=== PATIENT | female | born 2005 | race African-American/Black ===

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

== ENCOUNTER 2023-01-27 15:16 | Outpatient (CLI) | payer BC, SELFPAY | END 2023-01-27 15:17 | disposition home or self-care (01) | LOC: LKVREF 15:19 | PROVIDERS: PCP Physician Assistant Medical; Visit Provider Physician Assistant Medical | DX: E03.9 Hypothyroidism, unspecified (principal); I10 Essential (primary) hypertension | CPT/HCPCS: 82043; 82570; 87086 ==

== ENCOUNTER 2023-01-31 13:55 | Outpatient (CLI) | payer BC, SELFPAY ==
--- NOTE | 2023-01-31 14:00 | CRLHL7_ITS ---
For Patients: As a result of the Century Cures Act, medical imaging exams and procedure reports are released immediately into your electronic medical record. You may view this report before your referring provider. If you have questions, please contact your health care provider. INDICATION: HTN, elevated aldosterone TECHNIQUE: Grayscale, color Doppler and power Doppler evaluation of both kidneys. COMPARISON: None available FINDINGS: BILATERAL RENAL ARTERY DUPLEX ULTRASOUND ABDOMINAL AORTA: Peak systolic velocity = 127 cm/s. No aortic aneurysm. RIGHT KIDNEY: 11.6 cm in length. There is no hydronephrosis. Peak systolic velocity = 119 cm/second Renal artery to aortic peak systolic velocity ratio = 0.9 Resistive indices: 0.6 Renal vein = patent LEFT KIDNEY: 11.8 cm in length. There is no hydronephrosis. Peak systolic velocity = 147 cm/second Renal artery to aortic peak systolic velocity ratio = 1.2 Resistive indices: 0.6 Renal vein = patent IMPRESSION: No evidence of significant renal artery stenosis. Dictated by Corwin Chew MD @ 02/02/2023 12:28:38 PM (Electronically Signed)
== END 2023-01-31 13:56 | disposition home or self-care (01) ==
LOC: US 13:58
PROVIDERS: PCP Physician Assistant Medical; Visit Provider Physician Assistant Medical
DX: I10 Essential (primary) hypertension (principal); R79.89 Other specified abnormal findings of blood chemistry
CPT/HCPCS: 76775; 93975

== ENCOUNTER 2025-05-25 13:49 | Outpatient (CLI) | payer BC, SELFPAY | END 2025-05-25 13:50 | disposition home or self-care (01) | PROVIDERS: PCP Physician Assistant Medical; Visit Provider Physician Assistant Medical | DX: I10 Essential (primary) hypertension (principal); E66.01 Morbid (severe) obesity due to excess calories; Z68.43 Body mass index [BMI] 50.0-59.9, adult; Z30.41 Encounter for surveillance of contraceptive pills | CPT/HCPCS: 80053; 80061; 82043; 82570; 84443 ==

== ENCOUNTER 2025-06-08 10:03 | Outpatient (CLI) | payer BC, SELFPAY ==
[2025-06-10 14:41] LABS: Pap Test Digital Imaging Done
== END 2025-06-08 10:04 | disposition home or self-care (01) ==
LOC: LKVREF 10:04
PROVIDERS: PCP Physician Assistant Medical; Visit Provider Advanced Practice Midwife
DX: Z12.4 Encounter for screening for malignant neoplasm of cervix (principal)
CPT/HCPCS: 87624; 87625; 88141; 88142; 88175